=== PATIENT | male | born 1990 | race Caucasian/White ===

== ENCOUNTER 2023-07-26 21:42 | Emergency (ER) | payer BC, SELFPAY ==
[2023-07-26 21:44] VITALS: BP 117/79
--- NOTE | 2023-07-26 22:04 | ED.GENMED ---
History of Present Illness
General
Chief Complaint: Allergic Reaction
Source: patient
Exam Limitations: none
Time Seen by Provider: 07/26/23 21:59
Travel History
Have you had any contact with someone who has COVID-19?: No
Do you have any symptoms of coronavirus? Fever > 100 degrees, chills, cough, shortness of breath, sore throat, loss of taste or smell, muscle aches, or headache?: No
History of Present Illness
History of Present Illness:
See MDM
Past History
Past History
ED Past Medical History: None
ED Past Surgical History: None
Social History
Tobacco: Non-smoker
Drug: None
Phy Exam
Physical Exam
Physical Exam:
See MDM
Course
Orders/Labs/Results
Orders:
Orders
07/26/23 22:04
Diphenhydramine [Benadryl] 50 mg PO NOW STA
Prednisone [Deltasone] 50 mg PO NOW STA
Vital Signs
Initial and Last Documented VS:
Initial Vital Signs
Temp Pulse Resp BP Pulse Ox
97.9 F 61 18 117/79 98
07/26/23 21:44 07/26/23 21:44 07/26/23 21:44 07/26/23 21:44 07/26/23 21:44
Last Documented Vital Signs
Temp Pulse Resp BP Pulse Ox
97.9 F 61 18 117/79 98
07/26/23 21:44 07/26/23 21:44 07/26/23 21:44 07/26/23 21:44 07/26/23 21:44
MDM/Problems Addressed
Differential Diagnosis Includes:
HPI and MDM Narrative:
33-year-old male presenting with concern for allergic reaction. He is allergic to peanuts. About a half an hour ago, patient felt that his throat was itchy. This is similar presentation to a significant allergic reaction nuts. He is unsure if he
ate a peanut or not but believes he did. However, patient states he thinks he is feeling better. He took no medicines prior to arrival
On exam, he is well-appearing nontoxic. Posterior pharynx clear. Given his Benadryl and prednisone. He states he has EpiPen's at home. Because symptoms are improving states he feels comfortable going home
Physical exam
General: Well appearing and non-toxic
HEENT: protecting airway. Posterior pharynx clear
Neck: supple
CV: No evidence of cyanosis
Resp: No accessory muscle use
Abd: Non-distended
Extremities: No deformities
Neuro: alert
Psych: Normal affect
Skin: Intact
Problems Addressed including Acute and Chronic Conditions affecting care:
1. Allergic reaction
Acuity: acute
Prognosis: stable
Details: Will start Benadryl and prednisone
Updates
Differential Diagnosis (but not limited to): Allergic reaction, pharyngitis
Drug therapy (if applicable): OTC meds, please see d/c instruction regarding Rx drugs
Amount and/or Complexity of Data Reviewed
Clinical info obtained from: Patient
External data reviewed: N/A
Labs I independently reviewed (but not limited to): N/A
Radiology: N/A
Pulse Ox: not hypoxic
EKG independently reviewed: N/A
Etl Programmer: N/A
Critical Care: N/A
Risk of Complication:
Social Determinants of health: Good social support
Discussed with other providers: N/A
Escalation of Care includes Admit/Obs: After being observed in the Emergency Department, pt stable for discharge.
Occasional wrong word or 'sound a like' substitutions may have occurred due to the inherent limitations of voice recognition software. Read the chart carefully and recognize, using context, where substitutions have occurred.
*Critical Care Note
Total Time (30-74mins, 75-104mins- exclusive of procedures): Not Applicable
ED Attending Note
-
Portions of this chart may have been created with voice recognition software.� Occasional wrong word or��sound alike� substitutions may have occurred due to the inherent limitations of voice recognition software.
Discharge Plan
Departure
Patient Disposition: Home (Routine Discharge)
Date of Disposition: 07/26/23
Time of Disposition: 22:07
Patient with high blood pressure during this ER visit?: No
Discharge Problem:
Allergic reaction
Instructions: Allergic Reaction ED
Prescriptions:
New
prednisone 50 mg Tablet
50 mg PO DAILY Qty: 5 0RF
No Action
prednisone 50 MG tablet
50 mg PO DAILY Qty: 5 0RF
Activity Restrictions/Additional Instructions:
Please return for any worsening symptoms.
You may return at any time if you have further concerns.
Please follow up with your doctor at the first available appointment, preferably this week.
Thank you for choosing [facility].
Interventions
Interventions:
*Risk Screen - Suicide Last Done: 07/26/23 21:44
*General Assessment Last Done: 07/26/23 21:44
*Neglect/Abuse Screening Last Done: 07/26/23 21:44
ED- Fall Risk Assessment Last Done: 07/26/23 21:44
*ED COVID-19 Vaccine History Last Done: 07/26/23 21:44
[2023-07-26] MEDS: BENADRYL 50 MG PO (22:17)
[2023-07-26] MEDS: DELTASONE 50 MG PO (22:17)
== END 2023-07-26 22:19 | disposition home or self-care (01) ==
LOC: EMR 21:42
PROVIDERS: EMERGENCY PHYSICIAN Student in an Organized Health Care Education/Training Program; FAMILY PHYSICIAN Family Medicine
DX: T78.40XA Allergy, unspecified, initial encounter (principal); R09.89 Other specified symptoms and signs involving the circulatory and respiratory systems; L29.9 Pruritus, unspecified; Z91.010 Allergy to peanuts
CPT/HCPCS: 99283